=== PATIENT | male | born 1955 | race Caucasian/White ===

== ENCOUNTER 2021-09-10 00:02 | Inpatient (IN) | payer BC ==
[2021-09-10 00:12] VITALS: BMI 27.1
[2021-09-10] MEDS ORDERED: IPRATROPIUM BROM 0.5MG/2.5ML NEB PRN (00:33)
[2021-09-10] MEDS ORDERED: VANCOMYCIN 1.5 GM in NA CHLORIDE 0.9% 500 ML IVPB SCH (00:33)
[2021-09-10] MEDS ORDERED: ONDANSETRON 4 MG/2 ML VIAL IV PRN (00:33)
[2021-09-10] MEDS ORDERED: ALBUTEROL 2.5 MG/3 ML NEB SOL NEB PRN (00:33)
--- NOTE | 2021-09-10 00:47 | P.HP ---
Certification for Inpatient Patient admitted to: Inpatient With expected LOS: >2 Midnights Patient will require the following post-hospital care: None Practitioner: I am a practitioner with admitting privileges, knowledge of patient current condition, hospital course, and medical plan of care. Services: Services provided to patient in accordance with Admission requirements found in Title 42 Section 412.3 of the Code of Federal Regulations Patient History Date of Service: 09/10/21 Primary Care Provider: [place] Reason for admission: pneumonia History of Present Illness: Mr. 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 COVID and flu negative. He was seen by his drum saw operator at the [place] and was given a Medrol Dose Pack, which improved his symptoms for a short period. He was scheduled to followup for a CT scan when he began to feel worse. He says he gets pneumonia 3-4x a year, and was last hospitalized for pneumonia in 2019. CT scan showed no evidence of acute pulmonary embolism to the level of the proximal segmental pulmonary arteries. Multifocal nodules in a clustered distribution and small consolidations are noted throughout some of which demonstrate more confluent consolidation such as the left lower lobe and anterior aspect of he lingula and right middle lobe. this appearance favors a small airways infection. enlarged nodes measuring up to 1.3 cm are seen within the mediastinum, recommend further evaluation with PET/CT. 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 He says recently he was told he was exposed to contaminated drinking water while living in [place]. - Family History Brother -: Heart disease, Kidney disease - Social History Smoking Status: Never smoker Alcohol use: No CD- Drugs: No Caffeine use: No Place of Residence: Home Review of Systems 10-point ROS is otherwise unremarkable General: Fever, Chills, Malaise Eyes: Unremarkable ENT: Unremarkable Respiratory: Cough, Shortness of Breath, Pleuritic Pain, Sputum Cardiovascular: Unremarkable Gastrointestinal: Unremarkable Genitourinary: Unremarkable Musculoskeletal: Unremarkable Integumentary: Unremarkable Neurological: Unremarkable Lymphatics: Unremarkable Physical Examination - Vital Signs Temperature: 98.1 F Blood Pressure: 135/71 Pulse: 95 Respirations: 18 Pulse Ox (%): 95 - Physical Exam General: Alert, In no apparent distress HEENT: Atraumatic, PERRLA, Mucous membr. moist/pink, EOMI, Sclerae nonicteric Neck: Supple, 2+ carotid pulse no bruit, No LAD, Without JVD or thyroid abnormality Respiratory: Diminished, Rhonchi/gurgles Cardiovascular: Regular rate/rhythm, Normal S1 S2 Gastrointestinal: Normal bowel sounds, No tenderness Musculoskeletal: No tenderness Integumentary: No rashes Neurological: Normal speech, Normal strength at 5/5 x4 extr, Normal tone, Normal affect Lymphatics: No axilla or inguinal lymphadenopathy Assessment and Plan - Problems (Diagnosis) (1) Pneumonia Current Visit: Yes Status: Acute Qualifiers: Pneumonia type: due to unspecified organism Laterality: unspecified laterality Lung location: unspecified part of lung Qualified Code(s): J18.9 - Pneumonia, unspecified organism (2) Crohn disease Current Visit: Yes Status: Chronic Qualifiers: Gastrointestinal tract location: unspecified location Digestive disease complication type: without complication Qualified Code(s): K50.90 - Crohn's disease, unspecified, without complications - Plan pulmonology consulted continue IV vancomycin and zosyn antipyretics, O2, breathing treatments, antitussives PRN continue IVF hydration blood cultures and sputum cultures pending Discharge Plan: Home Plan to discharge in: 48 Hours - Advance Directives Does patient have a Living Will: No Does patient have a Durable POA for Healthcare: No - Code Status/Comfort Care Code Status Assessed: Yes (full code ) Critical Care: No Time Spent Managing Pts Care (In Minutes): 70
[2021-09-10] MEDS ORDERED: PIPER TAZO 3.375 GM in NA CHLORIDE 0.9% 100 ML IV SCH ×2 (01:00→12:00)
[2021-09-10] MEDS ORDERED: VANCOMYCIN 2.25 GM in NA CHLORIDE 0.9% 500 ML IVPB ONE (01:00)
[2021-09-10] MEDS: NA CHLORIDE 0.9% 1,000 ML IV SCH ×4 (01:25→22:47)
[2021-09-10 01:29] LABS: Absolute Lymphocytes (CBC) 1.1 K/uL (0.7-4.9); Lymphocytes % 15.6 % (15.3-44.8); MPV 6.3 fL (7.6-11.3); RBC Red Blood Cell Count 4.48 M/uL (4.33-5.43)
[2021-09-10 01:45] LABS: ALT/SGPT 33 U/L (12-78); AST/SGOT 21 U/L (15-37); Albumin 2.4 g/dL (3.4-5.0); Alkaline Phosphatase 132 U/L (45-117); BUN Blood Urea Nitrogen 11 mg/dL (7-18); Bicarbonate 28 mmol/L (21-32); Bilirubin Total 0.9 mg/dL (0.2-1.0); Glucose Level 125 mg/dL (74-106); Potassium 3.6 mmol/L (3.5-5.1); Protein, Total 6.7 g/dL (6.4-8.2); Sodium Level 136 mmol/L (136-145)
[2021-09-10 01:59] LABS: Ferritin 503.5 ng/mL (26-388)
[2021-09-10] MEDS: BENZONATATE 100 MG CAP PO PRN ×3 (02:14→22:23)
--- NOTE | 2021-09-10 08:43 | P.CNS ---
Date of Consult: 09/10/21 Reason for Consult: pneumonia Primary Care Provider: [place] Chief Complaint: pneumonia History of Present Illness: Age 65 with chrons, recurrent pneumonia and fungal infection, C bactirm [place], RTI neg COVID, NO PE, enlarging nodes in med. Recurrent pneumonia Sick since last Tuesday complaining of cough he has been treated for a fungal infection feeling better Allergies codeine Allergy (Verified 09/10/21 00:33) Anaphylaxis erythromycin base Allergy (Verified 09/10/21 00:33) Anaphylaxis Home Medications: Folic Acid 2 mg PO BID 09/10/21 Sulfamethoxazole/Trimethoprim [Sulfamethoxazole-Tmp Ss Tablet] 320 mg PO BID 09/10/21 - Past Medical/Surgical History Diabetic: No -: Crohn's disease -: appy -: knee surgery -: spinal cord surgery -: heart cath Psychosocial/ Personal History: He has lived in [place] and [place], was stationed in [facility] and the [facility] 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 He says recently he was told he was exposed to contaminated drinking water while living in [place]. - Family History Brother Medical History: Heart disease, Kidney disease - Social History Alcohol use: No CD- Drugs: No Caffeine use: No Place of Residence: Home Review of Systems 10-point ROS is otherwise unremarkable Respiratory: Cough, Shortness of Breath Physical Examination Temp Pulse Resp BP Pulse Ox 96.9 F 82 17 117/63 94 09/10/21 04:00 09/10/21 04:00 09/10/21 04:00 09/10/21 04:00 09/10/21 04:00 General: Alert, Oriented x3 HEENT: Atraumatic Neck: Supple Respiratory: Normal air movement Cardiovascular: No edema, Normal S1 S2 Laboratory Data (last 24 hrs) 09/10/21 01:06: Sodium 136, Potassium 3.6, BUN 11, Creatinine 0.79, Glucose 125 H, Total Bilirubin 0.9, AST 21, ALT 33, Alkaline Phosphatase 132 H 09/10/21 01:06: WBC 6.70, Hgb 11.4 L, Hct 35.0 L, Plt Count 461 H - Problems (1) Pneumonia Current Visit: Yes Status: Acute Plan: Age 65 Hx of recurrent pneumonia F/u at [place] Sick last Tuesday CT scan bilateral pneumonia On bactrim termite control technician basis" [place]x for a fungus"? Doing well Dc home on levaquin 750 mg daily WBC normal WBC normal/Cultures so far neg [facility] Qualifiers: Pneumonia type: due to unspecified organism Laterality: unspecified laterality Lung location: unspecified part of lung Qualified Code(s): J18.9 - Pneumonia, unspecified organism
[2021-09-10] MEDS ORDERED: POTASSIUM 25 MEQ EFFERV TAB PO ONE (09:00)
[2021-09-10] MEDS: ENOXAPARIN 40 MG/0.4 ML SQ SCH (09:02)
[2021-09-10 09:48] LABS: Urine Appearance CLEAR (Clear); Urine Bilirubin NEGATIVE (Negative); Urine Blood NEGATIVE (Negative); Urine Color DK YELLOW (Yellow); Urine Glucose NEGATIVE (Negative); Urine Protein 1+ (Negative); Urine Specific Gravity >=1.030 (1.005-1.030); Urine pH 6.5 (5.0-7.0)
[2021-09-10 10:06] LABS: Urine Microscopic Reflex ORDER UMIC
[2021-09-10 10:19] LABS: Urine Amorphous Sediment 1+ /HPF (NONE SEEN); Urine Bacteria NONE SEEN /HPF (NONE SEEN); Urine RBC NONE SEEN /HPF (NONE SEEN)
--- NOTE | 2021-09-10 10:55 | RAD REPORT ---
EXAM DESCRIPTION: RAD - Chest Single View - 09/10/2021 10:44 am CLINICAL HISTORY: pneumonia Chest pain. COMPARISON: CHEST PA AND LAT 2 VIEW dated 12/03/2014; CHEST SINGLE VIEW dated 06/15/2013; CHEST SINGLE VIEW dated 03/03/2011; CHEST PA AND LAT 2 VIEW dated 03/02/2011 FINDINGS: Portable technique limits examination quality. Bilateral moderate pulmonary opacities are seen, greater on the left, most compatible with bilateral pneumonia. The heart is normal in size. No displaced fractures.
[2021-09-10] MEDS: ACETAMINOPHEN 500 MG TAB PO PRN ×2 (11:22→22:21)
[2021-09-10] MEDS: PIPER TAZO 3.375 GM in NA CHLORIDE 0.9% 100 ML IV SCH (11:43)
--- NOTE | 2021-09-10 11:57 | P.PN ---
Subjective Date of Service: 09/10/21 Primary Care Provider: DEIDRE Chief Complaint: pneumonia Patient reports persistent coughing. He states his cough is nonproductive evaluation sputum. Fever up to 101 today. Physical Examination - Vital Signs Temperature: 101.2 F Blood Pressure: 177/80 Pulse: 110 Respirations: 18 Pulse Ox (%): 95 - Physical Exam General: Alert, In no apparent distress, Oriented x3 HEENT: Mucous membr. moist/pink, Sclerae nonicteric Neck: Supple, JVD not distended Respiratory: Normal air movement, Crackles/rales (Mild bibasilar crackles) Cardiovascular: No edema, Normal S1 S2, Other (Tachycardia) Capillary refill: <2 Seconds Gastrointestinal: Normal bowel sounds, Soft and benign, Non-distended, No tenderness Musculoskeletal: No swelling, No tenderness Integumentary: No rashes, No erythema, No cyanosis Neurological: Normal speech, Normal strength at 5/5 x4 extr - Studies Laboratory Data (last 24 hrs) 09/10/21 01:06: Sodium 136, Potassium 3.6, BUN 11, Creatinine 0.79, Glucose 125 H, Total Bilirubin 0.9, AST 21, ALT 33, Alkaline Phosphatase 132 H 09/10/21 01:06: WBC 6.70, Hgb 11.4 L, Hct 35.0 L, Plt Count 461 H Assessment And Plan - Current Problems (Diagnosis) (1) Sepsis Current Visit: Yes Status: Acute (2) Pneumonia Current Visit: Yes Status: Acute Qualifiers: Pneumonia type: due to unspecified organism Laterality: unspecified lat erality Lung location: unspecified part of lung Qualified Code(s): J18.9 - Pneumonia, unspecified organism (3) Crohn disease Current Visit: Yes Status: Chronic Qualifiers: Gastrointestinal tract location: unspecified location Digestive disease complication type: without complication Qualified Code(s): K50.90 - Crohn's disease, unspecified, without complications - Plan Patient flagging for sepsis. Check lactic acid and hydrate with IV fluid. Continue IV Zosyn and vancomycin. We will add Levaquin to cover atypicals. Sputum culture. Obtain blood cultures. Pulmonary consulted. Patient is tolerating room air. Supportive measures-antitussives. Chest physiotherapy. Crohn's disease is stable
[2021-09-10] MEDS: Levofloxacin 750mg IV 750 MG/150 ML BAG IV SCH (12:46)
[2021-09-10] MEDS: VANCOMYCIN 1.75 GM in NA CHLORIDE 0.9% 500 ML IVPB SCH (14:15)
[2021-09-10] MEDS ORDERED: MELATONIN 5 MG TABLET PO PRN (22:31)
[2021-09-11] MEDS: PIPER TAZO 3.375 GM in NA CHLORIDE 0.9% 100 ML IV SCH ×2 (00:05→11:07)
[2021-09-11] MEDS: VANCOMYCIN 1.75 GM in NA CHLORIDE 0.9% 500 ML IVPB SCH (00:51)
[2021-09-11 06:20] LABS: Hematocrit 33.1 % (39.6-49.0); Lymphocytes % 13.3 % (15.3-44.8); MPV 6.2 fL (7.6-11.3); RBC Red Blood Cell Count 4.22 M/uL (4.33-5.43)
[2021-09-11 06:40] LABS: ALT/SGPT 26 U/L (12-78); AST/SGOT 15 U/L (15-37); Albumin 2.1 g/dL (3.4-5.0); Alkaline Phosphatase 110 U/L (45-117); BUN Blood Urea Nitrogen 8 mg/dL (7-18); Bicarbonate 27 mmol/L (21-32); Bilirubin Total 0.7 mg/dL (0.2-1.0); Glucose Level 99 mg/dL (74-106); Phosphorus 2.5 mg/dL (2.5-4.9); Potassium 3.6 mmol/L (3.5-5.1); Protein, Total 6.2 g/dL (6.4-8.2); Sodium Level 136 mmol/L (136-145); Transferrin 126 mg/dL (200-360)
--- NOTE | 2021-09-11 08:04 | RAD REPORT ---
EXAM DESCRIPTION: Ana Single View09/11/2021 5:42 am CLINICAL HISTORY: Chest pain COMPARISON: September 10, 2020 FINDINGS: Mild worsening in the left basilar consolidation. No other change IMPRESSION: Mild worsening left basilar consolidation probably pneumonia. This should be followed un til it is clear to help exclude post obstructive process/underlying mass
[2021-09-11] MEDS ORDERED: POTASSIUM CL SA 10 MEQ TAB PO ONE (09:00)
[2021-09-11] MEDS: BENZONATATE 100 MG CAP PO PRN (09:00)
[2021-09-11] MEDS: ENOXAPARIN 40 MG/0.4 ML SQ SCH (09:00)
[2021-09-11] MEDS ORDERED: VANCOMYCIN 1.75 GM in NA CHLORIDE 0.9% 500 ML IVPB SCH (09:00)
[2021-09-11 09:28] VITALS: O2SAT 93
[2021-09-11] MEDS: NA CHLORIDE 0.9% 1,000 ML IV SCH (10:17)
--- NOTE | 2021-09-11 10:54 | P.DS ---
Admission Date: 09/10/21 Discharge Date: 09/11/21 Primary Care Provider: [place] Disposition: ROUTINE DISCHARGE Discharge Condition: FAIR Reason for Admission: pneumonia - Problems (1) Sepsis Current Visit: Yes Status: Acute (2) Pneumonia Current Visit: Yes Status: Acute Qualifiers: Pneumonia type: due to unspecified organism Laterality: unspecified laterality Lung location: unspecified part of lung Qualified Code(s): J18.9 - Pneumonia, unspecified organism (3) Crohn disease Current Visit: Yes Status: Chronic Qualifiers: Gastrointestinal tract location: unspecified location Digestive disease complication type: without complication Qualified Code(s): K50.90 - Crohn's disease, unspecified, without complications Brief History of Present Illness: Mr. Ricci is a 65 yo M with history of Crohn's disease, recurrent pneumonia, and fungal infection in the lungs on chronic Bactrim therapy for the past 3 years who presented with one week of fever, cough productive of yellow sputum, sats 92% on room air. COVID and flu negative. He was seen by his canvas goods maker at the [place] and was given a Medrol Dose Pack, which improved his symptoms for a short period. He was scheduled to followup for a CT scan when he began to feel worse. He says he gets pneumonia 3-4x a year, and was last hospitalized for pneumonia in 2019. CT scan showed no evidence of acute pulmonary embolism to the level of the pro ximal segmental pulmonary arteries. Multifocal nodules in a clustered distribution and small consolidations are noted throughout some of which demonstrate more confluent consolidation such as the left lower lobe and anterior aspect of he lingula and right middle lobe, appearance favoring a small airways infection. enlarged nodes measuring up to 1.3 cm are seen within the mediastinum. Patient hospitalized for further management. Hospital Course: Patient admitted to the medical floor and treated for pneumonia with aggressive antibiotic therapy-IV Zosyn, IV Levaquin and vancomycin. Sputum culture showed multiple bacteria organisms. Patient did not require oxygen. Oxygen saturation was stable at room air. He clinically improved with treatment. Patient seen in consultation by pulmonary-Dr. Solis who assisted with management. He is deemed stable for discharge per Dr. Solis. Patient is discharged with oral Levaquin. He has mediastinal lymphadenopathy which needs to be followed as an outpatient with a PET scan. Vital Signs/Physical Exam: Temp Pulse Resp BP Pulse Ox 97.6 F 93 H 17 138/68 91 09/11/21 08:00 09/11/21 08:00 09/11/21 08:00 09/11/21 08:00 09/11/21 08:00 General: Alert, In no apparent distress, Oriented x3 HEENT: Mucous membr. moist/pink Neck: Supple, JVD not distended Respiratory: Normal air movement, Other (No crackles.) Cardiovascular: No edema, Regular rate/rhythm, Normal S1 S2 Gastrointestinal: Soft and benign, Non-distended, No tenderness Musculoskeletal: No swelling, No tenderness Integumentary: No rashes Neurological: Normal strength at 5/5 x4 extr Laboratory Data at Discharge: WBC 7.30 K/uL (4.3-10.9) 09/11/21 05:57 Hgb 11.0 g/dL (13.6-17.9) L 09/11/21 05:57 Hct 33.1 % (39.6-49.0) L 09/11/21 05:57 Plt Count 472 K/uL (152-406) H 09/11/21 05:57 Sodium 136 mmol/L (136-145) 09/11/21 05:57 Potassium 3.6 mmol/L (3.5-5.1) 09/11/21 05:57 BUN 8 mg/dL (7-18) 09/11/21 05:57 Creatinine 0.61 mg/dL (0.55-1.3) 09/11/21 05:57 Glucose 99 mg/dL (74-106) 09/11/21 05:57 Phosphorus 2.5 mg/dL (2.5-4.9) 09/11/21 05:57 Magnesium 2.0 mg/dL (1.8-2.4) 09/11/21 05:57 Total Bilirubin 0.7 mg/dL (0.2-1.0) 09/11/21 05:57 AST 15 U/L (15-37) 09/11/21 05:57 ALT 26 U/L (12-78) 09/11/21 05:57 Alkaline Phosphatase 110 U/L (45-117) 09/11/21 05:57 Home Medications: Folic Acid 2 mg PO BID 09/10/21 Sulfamethoxazole/Trimethoprim [Sulfamethoxazole-Tmp Ss Tablet] 320 mg PO BID 09/10/21 Benzonatate [Tessalon Perle*] 100 mg PO TID PRN #30 cap 09/11/21 Guaif/Dm [Robitussin Dm] 10 ml PO QID PRN #60 ucup 09/11/21 Lactobacillus Acidophilus [Acidophilus] 1 each PO TID #30 capsule 09/11/21 levoFLOXacin [Levaquin] 750 mg PO DAILY #9 tab 09/11/21 New Medications: Lactobacillus Acidophilus [Acidophilus] 1 each PO TID #30 capsule levoFLOXacin [Levaquin] 750 mg PO DAILY #9 tab Guaif/Dm [Robitussin Dm] 10 ml PO QID PRN #60 ucup PRN Reason: Cough Benzonatate [Tessalon Perle*] 100 mg PO TID PRN #30 cap PRN Reason: Cough Diet: AHA Activity: Ad ayaka Followup: Prosper Solis MD [ACTIVE - CAN ADMIT] - 1-2 Weeks Time spent managing pt's care (in minutes): 37
[2021-09-11] MEDS: Levofloxacin 750mg IV 750 MG/150 ML BAG IV SCH (11:06)
[2021-09-11 12:13] VITALS: BP 142/67; TEMP 98.3
== END 2021-09-11 14:00 | disposition home or self-care (01) | DRG 871 ==
LOC: 2ND 00:02
PROVIDERS: ADMIT Internal Medicine; ATTEND Internal Medicine
DX: A41.9 Sepsis, unspecified organism (principal); J18.9 Pneumonia, unspecified organism; K50.90 Crohn's disease, unspecified, without complications; Z88.5 Allergy status to narcotic agent; Z88.1 Allergy status to other antibiotic agents; Z79.899 Other long term (current) drug therapy
CPT/HCPCS: 36415; 71045; 80053; 80202; 81003; 81015; 82728; 83540; 83605; 83735; 84100; 84145; 84439; 84443; 84466; 85025; 85652; 86140; 87040; 87070; 87205; 94760; J1650; J2543; J3370; J7030; J7040